=== PATIENT | female | born 1970 | race Native Hawaiian/Other Pacific Islander ===

== ENCOUNTER 2021-06-03 15:43 | Outpatient (CLI) | payer BC | END 2021-06-03 19:15 | disposition home or self-care (01) | LOC: RAD 15:43 | PROVIDERS: ATTEND Physician Assistant | DX: M54.59 Other low back pain (principal) ==

== ENCOUNTER 2021-07-10 08:32 | Outpatient (CLI) | payer BC | END 2021-07-10 19:16 | disposition home or self-care (01) | LOC: MRI 08:32 | PROVIDERS: ATTEND Physician Assistant | DX: M54.16 Radiculopathy, lumbar region (principal) ==